=== PATIENT | female | born 1935 | race Caucasian/White ===

== ENCOUNTER 2017-11-23 12:49 | Emergency (ER) | payer OTHER ==
[~2017-11-23] VITALS: Ht 154.9 cm; Wt 49.9 kg
[2017-11-23 12:57] VITALS: Ht 154.9 cm; Wt 49.9 kg
[2017-11-23 15:26] VITALS: BP 114/69
== END 2017-11-23 15:26 | disposition home or self-care (01) ==
LOC: ED 12:49
DX: S32.592A Other specified fracture of left pubis, initial encounter for closed fracture (principal); I10 Essential (primary) hypertension; E11.9 Type 2 diabetes mellitus without complications; W19.XXXA Unspecified fall, initial encounter; Y93.89 Activity, other specified; Y92.89 Other specified places as the place of occurrence of the external cause; Y99.8 Other external cause status